=== PATIENT | male | born 1995 | race Caucasian/White ===

== ENCOUNTER 2018-02-26 15:32 | Emergency (ER) | payer SELFPAY ==
[~2018-02-26 15:32] MED LIST: DEXT30LI5 PO; GUALA600 PO; IBU200 PO; LOR5/325 PO
[2018-02-26 15:35] VITALS: BP 110/74
--- NOTE | 2018-02-26 15:47 | ER Report ---
History and Physical Time Seen By MD: 15:47 Hx. of Stated Complaint: pt presents with a lesion on l side of face prox to ear, for 3-4 days. Getting more painful HPI/ROS 22-year-old male presents to the emergency department with an increasingly painful pustule just anterior to his left ear. He said the lesion has been there for approximately 2-3 days. He has not tried any [id number] treatments. No fever or chills. He states that he once had a small abscess behind his ear that required I and D, and he did not want this lesion to get that bad. This is his only complaint. Allergies: Coded Allergies: No Known Drug Allergies (Verified , 02/26/18) Home Meds Discontinued Reported Medications Ibuprofen (Motrin) 200 Mg Tab, 200 MG PO, #20 0 Refills 11/03/10 Acetaminophen/Hydrocodone (Lortab 5/325 Mg) 5 Mg/325 Mg Tab, 1 TAB PO Q4-6H, 0 Refills 11/03/10 [None] No Conflict Check, 0 Refills 11/03/10 Reviewed Nurses Notes: Yes Old Medical Records Reviewed: Yes Hx Smoking: No Hx Substance Use Disorder: No Hx Alcohol Use: Yes (occ) Constitutional Vital Sign - Last 24 Hours 02/26/18 15:35 Temp 99.0 Pulse 71 Resp 16 B/P (MAP) 110/74 Pulse Ox 93 Physical Exam General Appearance: The patient is alert, has no immediate need for airway protection and no current signs of toxicity. Eyes: Pupils equal and round no injection. Respiratory: Chest is non tender, lungs are clear to auscultation. Cardiac: regular rate and rhythm Skin: Small area of erythema just anterior to his left tragus. No postural, and no abscess. DIFFERENTIAL DIAGNOSIS: After history and physical exam differential diagnosis was considered for abscess, lymph node, insect bite Medical Decision Making ED Course/Re-evaluation ED Course Area of erythema just anterior to the patient's left tragus. Not consistent with a cellulitis. There is no pustule or abscess noted. It could be that he feels a small pustule under the skin, however physical exam in that area is normal other than some mild tenderness to palpation. I do not think he needs oral an tibiotics. It is not consistent with lymphadenopathy. I will give him a prescription for Bactroban to apply to the area. I counseled him to keep the area clean and dry. He will follow-up with his primary physician. Decision to Disposition Date: Feb 26, 2018 Decision to Disposition Time: 16:33 Depart Departure Latest Vital Signs Vital Signs Date Time Temp Pulse Resp B/P (MAP) Pulse Ox O2 Delivery O2 Flow Rate FiO2 02/26/18 15:35 99.0 71 16 110/74 93 Impression: Primary Impression: Skin abnormality Condition: Improved Disposition: HOME OR SELF-CARE New Scripts No Active Prescriptions or Reported Meds Patient Instructions: Folliculitis (ED) JODI HELM MD Feb 26, 2018 15:47
[2018-02-26] MEDS ORDERED: MUPIROCIN 2% OINT 22 GM TUBE TP ONE (16:30)
== END 2018-02-26 16:40 | disposition home or self-care (01) ==
LOC: ER 15:43
DX: L98.8 Other specified disorders of the skin and subcutaneous tissue (principal)
CPT/HCPCS: 99282

== ENCOUNTER 2018-10-13 18:38 | Emergency (ER) | payer OTHER ==
[2018-10-13 18:44] VITALS: BP 133/101
--- NOTE | 2018-10-13 18:50 | ER Report ---
History and Physical Time Seen By MD: 18:48 Hx. of Stated Complaint: DROPPED 200LBS ON FOOT WHILE MOVING. WAS ABLE TO FINISH REST OF WORK, WENT HOME, TOOK SHOE OFF AND DECIDED TO CME IN HPI/ROS CHIEF COMPLAINT: Foot injury HISTORY OF PRESENT ILLNESS: This is a 22-year-old male presents to the emergency department for a foot injury. Patient states that while he was at work today, a roughly 200 pound table fell on the top of his left foot. Patient states he continued to work throughout the day however it's increased in pain, he does have swelling. No numbness or tingling. No eyes deformities. No other complaints. No chest pain or shortness breath. He did have a "wave of nausea" shortly after having that has since then resolved. REVIEW OF SYSTEMS: Respiratory: No cough, no dyspnea. Cardiovascular: No chest pain, no palpitations. Gastrointestinal: No vomiting, no abdominal pain. Musculoskeletal: As above. Allergies: Coded Allergies: No Known Drug Allergies (Verified , 10/13/18) Home Meds No Active Prescriptions or Reported Meds Past Medical/Surgical History The patient has no significant past medical or surgical history. Reviewed Nurses Notes: Yes Hx Smoking: No Hx Substance Use Disorder: No Hx Alcohol Use: Yes (occ) Constitutional Vital Sign - Last 24 Hours 10/13/18 18:44 Temp 98.1 Pulse 99 Resp 18 B/P (MAP) 133/101 Pulse Ox 96 O2 Delivery Room Air Physical Exam General Appearance: The patient is alert, has no immediate need for airway protection and no current signs of toxicity. Eyes: Pupils equal and round no injection. Respiratory: Chest is non tender, lungs are clear to auscultation. Cardiac: regular rate and rhythm. Gastrointestinal: Abdomen is soft and non tender, no masses, bowel sounds no rmal. Musculoskeletal: Neck: Neck is supple and non tender. Extremities pain over the dorsum of the left foot. No deformity, no crepitus, swelling and bruising noted. Skin: No rashes or lesions. DIFFERENTIAL DIAGNOSIS: After history and physical exam differential diagnosis was considered for contusion, fracture, subluxation. Medical Decision Making EKG/Imaging Imaging Location: [facility] Patient: Oh Young : 1995 Visit/Account:[id number] Date of Sevice: 10/13/2018 EXAMINATION: Left foot 3 views HISTORY: Table versus foot. COMPARISON: None. FINDINGS: No evidence of acute fracture or dislocation about the left foot. Normal alignment. Joint spaces are preserved. Soft tissues are unremarkable. IMPRESSION: Negative left foot. Report Dictated By: Rashaun Jacobs MD at 10/13/2018 7:12 PM Report E-Signed By: Rashaun Jacobs MD at 10/13/2018 7:13 PM [facility] Course/Re-evaluation ED Course The patient was admitted to room. A history and physical were obtained. Differential diagnoses were considered. An x-ray of the left foot was negative for any acute pathology. Reviewed results with the patient. I did tell him this is likely a contusion, he was placed in a walking boot, given a hydrocodone in the ER sent home with a home pack for 2, instructed take ibuprofen or Tylenol and follow-up with his primary care provider or [facility] for reevaluation if no improvement in one week. Patient was understanding, was agreeable to plan of care and discharged home. Decision to Disposition Date: Oct 13, 2018 Decision to Disposition Time: 19:21 Depart Departure Latest Vital Signs Vital Signs Date Time Temp Pulse Resp B/P (MAP) Pulse Ox O2 Delivery O2 Flow Rate FiO2 10/13/18 18:44 98.1 99 18 133/101 96 Room Air Impression: Primary Impression: Contusion of left foot Condition: Improved Disposition: HOME OR SELF-CARE Referrals: [facility] New Scripts No Active Prescriptions or Reported Meds Patient Instructions: Contusion in Adults (ED) Additional Instructions: No obvious deformities on the x-ray today. Take the hydrocodone for severe pain. No working while taking hydrocodone. No driving or operating machinery while taking hydrocodone. Take ibuprofen or Tylenol as needed for pain. Wear the walking boot for comfort. If no improvement within 1 week follow-up with [facility] for reevaluation. Get plenty of rest. Drink plenty of water. Return to the ER for any concerns or worsening symptoms. 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
--- NOTE | 2018-10-13 19:17 | RADIOLOGY IMAGING REPORT ---
FACILITY: [facility] PATIENT NAME: Oh Young : 1995 MR: [id number] V: [id number] EXAM DATE: ORDERING PHYSICIAN: BRIDGET GAN TECHNOLOGIST: Location: [facility] Patient: Oh Young : 1995 Visit/Account:[id number] Date of Sevice: 10/13/2018 EXAMINATION: Left foot 3 views HISTORY: Table versus foot. COMPARISON: None. FINDINGS: No evidence of acute fracture or dislocation about the left foot. Normal alignment. Joint spaces ar e preserved. Soft tissues are unremarkable. IMPRESSION: Negative left foot. Report Dictated By: Rashaun Jacobs MD at 10/13/2018 7:12 PM Report E-Signed By: Rashaun Jacobs MD at 10/13/2018 7:13 PM WSN:[id number]
[2018-10-13] MEDS ORDERED: APAP/HYDROCODONE 325/5 TAB PO ONE (19:20)
[2018-10-13] MEDS ORDERED: ACET/HYDROC 5/325MG TH ER ONLY 2 TAB/BOTTLE PO ONE (19:20)
== END 2018-10-13 19:30 | disposition home or self-care (01) ==
LOC: ER 18:55
DX: S90.32XA Contusion of left foot, initial encounter (principal); W20.8XXA Other cause of strike by thrown, projected or falling object, initial encounter
CPT/HCPCS: 99283